=== PATIENT | female | born 1985 | race Caucasian/White ===

== ENCOUNTER 2019-04-30 17:04 | Emergency (ER) | payer MEDICAID, SELFPAY ==
[2019-04-30 18:01] LABS: Absolute Lymphocytes (CBC) 3.2 K/uL (0.7-4.9); Basophils % 0.8 % (0-1.3); Hematocrit 37.3 % (36.0-45.0); Lymphocytes % 29.5 % (15.3-44.8); RBC Red Blood Cell Count 4.03 M/uL (3.86-4.86)
[2019-04-30 18:33] LABS: BUN Blood Urea Nitrogen 9 mg/dL (7-18); Bicarbonate 26 mmol/L (21-32); Glucose Level 107 mg/dL (74-106); HCG, Quantitative 44403 mIU/mL (1-3); Potassium 3.4 mmol/L (3.5-5.1); Sodium Level 139 mmol/L (136-145)
--- NOTE | 2019-04-30 19:12 | RAD REPORT ---
EXAM DESCRIPTION: US - Transvaginal OB - 04/30/2019 6:55 pm CLINICAL HISTORY: with pelvic pain and vaginal bleeding COMPARISON: None. FINDINGS: The uterus measures 11 x 7 x 7 centimeters. Gestational sac measures 2.49 centimeters. A yolk sac is not seen. A pole is not demonstrated. No subchorionic bleed The right ovary is normal in size and echotexture. The left ovary was not seen An adnexal mass is not noted. No significant free fluid is seen. IMPRESSION: These findings likely represent a blighted ovum. However, it is recommended that the pat ient have a followup endovaginal sonogram in 1 week for re-evaluation
--- NOTE | 2019-04-30 19:24 | EDPHYS ---
Physician Documentation [facility] Name: Herminia Vega Age: 33 yrs Sex: Female : 1985 Arrival Date: 04/30/2019 Time: 17:07 Bed 5 Private MD: ED Physician Nikolas Morales HPI: 04/30 17:43 This 33 yrs old Female presents to ER via Ambulatory with complaints of jr8 Abdominal Cramping, Unknown Weeks . 17:43 The patient presents to the emergency department with abdominal pain, of the suprapubic jr8 area, that started 2 day(s) ago, described as crampy. course: care: none, Leakage of Fluid: none appreciated, Ultrasound: the patient has not had an ultrasound. Previous pregnancies: in previous pregnancies patient has had vaginal delivery, no complications. Associated signs and symptoms: The patient has no apparent associated signs or symptoms. The patient has not experienced similar symptoms in the past. The patient has not recently seen a physician. 17:44 Cramping that started 2 days ago. Took test a week ago and was positive. jr8 Denies bleeding/spotting. Has not had this in past with her other pregnancies . 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 - Coronavirus screen:: The patient has NOT traveled to [place] in the past 14 days. Proceed with normal triage process as indicated. - Social history:: Smoking status: Patient denies any tobacco usage or history of. - Ebola Screening: : Patient negative for fever greater than or equal to 101.5 degrees Fahrenheit, and additional compatible Ebola Virus Disease symptoms Patient denies exposure to infectious person Patient denies travel to an Ebola-affected area in the 21 days before illness onset No symptoms or risks identified at this time. ROS: 17:44 Eyes: Negative for injury, pain, redness, and discharge, ENT: Negative for injury, jr8 pain, and discharge, Neck: Negative for injury, pain, and swelling, Cardiovascular: Negative for chest pain, palpitations, and edema, Respiratory: Negative for shortness of breath, cough, wheezing, and pleuritic chest pain, Back: Negative for injury and pain, : Negative for injury, bleeding, discharge, and swelling, MS/Extremity: Negative for injury and deformity, Skin: Negative for injury, rash, and discoloration, Neuro: Negative for headache, weakness, numbness, tingling, and seizure. 17:44 Abdomen/GI: Positive for abdominal cramps, Negative for nausea, vomiting, and diarrhea, abdominal distension. Exam: 17:44 Eyes: Pupils equal round and reactive to light, extra-ocular motions intact. Lids and jr8 lashes normal. Conjunctiva and sclera are non-icteric and not injected. Cornea within normal limits. Periorbital areas with no swelling, redness, or edema. ENT: Nares patent. No nasal discharge, no septal abnormalities noted. Tympanic membranes are normal and external auditory canals are clear. Oropharynx with no redness, swelling, or masses, exudates, or evidence of obstruction, uvula midline. Mucous membranes moist. Neck: Trachea midline, no thyromegaly or masses palpated, and no cervical lymphadenopathy. Supple, full range of motion without nuchal rigidity, or vertebral point tenderness. No Meningismus. Cardiovascular: Regular rate and rhythm with a normal S1 and S2. No gallops, murmurs, or rubs. Normal PMI, no JVD. No pulse deficits. Respiratory: Lungs have equal breath sounds bilaterally, clear to auscultation and percussion. No rales, rhonchi or wheezes noted. No increased work of breathing, no retractions or nasal flaring. Back: No spinal tenderness. No costovertebral tenderness. Full range of motion. Skin: Warm, dry with normal turgor. Normal color with no rashes, no lesions, and no evidence of cellulitis. MS/ Extremity: Pulses equal, no cyanosis. Neurovascular intact. Full, normal range of motion. Neuro: Awake and alert, GCS 15, oriented to person, place, time, and situation. Cranial nerves II-XII grossly intact. Motor strength 5/5 in all extremities. Sensory grossly intact. Cerebellar exam normal. Normal gait. 17:44 Abdomen/GI: Inspection: obese Bowel sounds: active, all quadrants, Palpation: soft, in all quadrants, mild abdominal tenderness, in the suprapubic area, mass, is not appreciated, rebound tenderness, is not appreciated, voluntary guarding, is not appreciated, involuntary guarding, is not appreciated, no appreciated organomegaly, Indicators: McBurney's point is not tender, Acevedo's sign is negative, Rovsing's sign is negative, Liver: tenderness, is not appreciated. Vital Signs: 17:25 BP 131 / 79; Pulse 90; Resp 16; Temp 98.0; Pulse Ox 99% on R/A; Weight 81.19 kg; Height iw 5 ft. 5 in. (165.10 cm); Pain 7/10; 18:44 BP 130 / 91; Pulse 89; Resp 17; Pulse Ox 99% on R/A; rb1 19:39 BP 113 / 65; Pulse 82; Resp 16; Temp 97.9; Pulse Ox 97% on R/A; Pain 4/10; aa1 17:25 Body Mass Index 29.79 (81.19 kg, 165.10 cm) iw MDM: 17:29 Patient medically screened. jr8 19:21 Data reviewed: vital signs, nurses notes, lab test result(s), radiologic studies, jr8 ultrasound. Data interpreted: Pulse oximetry: on room air is 99 %. Interpretation: normal. Counseling: I had a detailed discussion with the patient and/or guardian regarding: the historical points, exam findings, and any diagnostic results supporting the discharge/admit diagnosis, lab results, radiology results, the need for outpatient follow up, an OB/Gyne specialist, to return to the emergency department if symptoms worsen or persist or if there are any questions or concerns that arise at home. ED course: Discussed with patient that this could be early IUP vs. Blighted ovum. Needs f/u and another US in 1 week. If she were to start bleeding in between now and then to come back for further evaluation . 04/30 17: Order name: Quantitative Hcg; Complete Time: 19:00 8 04/30 17:29 Order name: Basic Metabolic Panel; Complete Time: :8 04/30 17: Order name: CBC with Diff; Complete Time: :00 jr8 04/30 18:04 Order name: Urine Dipstick--Ancillary (enter results) bd 04/30 18:04 Order name: Urine --Ancillary (enter results) bd 04/30 18:08 Order name: US Transvaginal Ob 8 04/30 17:29 Order name: Urine Test (obtain specimen); Complete Time: 18:03 jr8 04/30 17:29 Order name: IV Saline Lock; Complete Time: 17:53 8 04/30 17:29 Order name: Labs collected and sent; Complete Time: 17:54 8 04/30 17:29 Order name: NPO; Complete Time: 18:02 jr8 04/30 17:29 Order name: Urine Dipstick-Ancillary (obtain specimen); Complete Time: 18:03 Administered Medications: No medications were administered Disposition: 04/30/19 19:22 Discharged to Home. Impression: Threatened . - Condition is Stable. - Discharge Instructions: Threatened Miscarriage, Blighted Ovum. - Medication Reconciliation Form, Thank You Letter, Antibiotic Education, Prescription Opioid Use, SBAR form form. - Follow up: Private Physician; When: 1 week; Reason: Recheck today's complaints, Continuance of care, Re-evaluation by your physician. - Problem is new. - Symptoms are unchanged. Addendum: 05/03/2019 07:13 Co-signature as Attending Physician, Nikolas Morales MD. r n Signatures: Dispatcher [employer] EDMS Ludy Ruiz RN RN aa1 Rena Sierra RN RN iw Nieto, Roman, MD MD rn Roszak, Josh, PA PA jr8 Corrections: (The following items were deleted from the chart) 04/30 17:45 17:44 Eyes: Negative for injury, pain, redness, and discharge, ENT: Negative for jr8 injury, pain, and discharge, Neck: Negative for injury, pain, and swelling, Cardiovascular: Negative for chest pain, palpitations, and edema, Respiratory: Negative for shortness of breath, cough, wheezing, and pleuritic chest pain, Back: Negative for injury and pain, MS/Extremity: Negative for injury and deformity, Skin: Negative for injury, rash, and discoloration, Neuro: Negative for headache, weakness, numbness, tingling, and seizure, jr8 19:43 19:22 04/30/2019 19:22 Discharged to Home. Impression: Threatened . Condition aa1 is Stable. Forms are SBAR form, Medication Reconciliation Form, Thank You Letter, Antibiotic Education, Prescription Opioid Use. Follow up: Private Physician; When: 1 week; Reason: Recheck today's complaints, Continuance of care, Re-evaluation by your physician. Problem is new. Symptoms are unchanged. jr8
--- NOTE | 2019-04-30 19:24 | ER ---
Nurse's Notes [facility] Name: Herminia Vega Age: 33 yrs Sex: Female : 1985 Arrival Date: 04/30/2019 Time: 17:07 Bed 5 Private MD: Diagnosis: Threatened Presentation: 04/30 17:23 Presenting complaint: Patient states: had a positive UPT last week, LMP Feb [id number]. iw started cramping X 2 days, denies vaginal bleeding, does not have OB set up yet, . Transition of care: patient was not received from another setting of care. Onset of symptoms was April 28, 2019. Risk Assessment: Do you want to hurt yourself or someone else? Patient reports no desire to harm self or others. Initial Sepsis Screen: Does the patient meet any 2 criteria? No. Patient's initial sepsis screen is negative. Does the patient have a suspected source of infection? No. Patient's initial sepsis screen is negative. Care prior to arrival: None. 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 - Coronavirus screen:: The patient has NOT traveled to [place] in the past 14 days. Proceed with normal triage process as indicated. - Social history:: Smoking status: Patient denies any tobacco usage or history of. - Ebola Screening: : Patient negative for fever greater than or equal to 101.5 degrees Fahrenheit, and additional compatible Ebola Virus Disease symptoms Patient denies exposure to infectious person Patient denies travel to an Ebola-affected area in the 21 days before illness onset No symptoms or risks identified at this time. Screenin:30 Abuse screen: Denies threats or abuse. Nutritional screening: No deficits noted. rb1 Tuberculosis screening: No symptoms or risk factors identified. Fall Risk None identified. Assessment: 17:30 General: Appears in no apparent distress. comfortable, Behavior is calm, cooperative, rb1 Denies fever. General: Denies being on any control at this time. Pain: Complains of pain in suprapubic area Pain currently is 8 out of 10 on a pain scale. Neuro: Level of Consciousness is awake, alert, obeys commands, Oriented to person, place, time, situation. Neuro: Denies Back pain. Cardiovascular: Capillary refill < 3 seconds is brisk in bilateral fingers. Respiratory: Airway is patent Respiratory effort is even, unlabored, Respiratory pattern is regular, symmetrical. GI: No signs and/or symptoms were reported involving the gastrointestinal system. Abd is soft X 4 quads. : No signs and/or symptoms were reported regarding the genitourinary system. : Denies burning with urination, pain with urination urinary frequency, urgency, vaginal bleeding, vaginal itching. Derm: Skin is pink, warm \T\ dry. 17:35 Reassessment: Asked the pt. to remain NPO until after we receive all test results, rb1 verbalized understanding. 18:30 Reassessment: Patient appears in no apparent distress at this time. Patient and/or rb1 family updated on plan of care and expected duration. Pain level reassessed. Patient is alert, oriented x 3, equal unlabored respirations, skin warm/dry/pink. 19:39 Reassessment: Patient appears in no apparent distress at this time. Patient is alert, aa1 oriented x 3, equal unlabored respirations, skin warm/dry/pink. Discussed d/c \T\ f/u instructions with pt \T\ spouse; denies questions or concerns at this time. Ambulatory to lobby with steady gait. Patient states feeling better. Vital Signs: 17:25 BP 131 / 79; Pulse 90; Resp 16; Temp 98.0; Pulse Ox 99% on R/A; Weight 81.19 kg; Height iw 5 ft. 5 in. (165.10 cm); Pain 7/10; 18:44 BP 130 / 91; Pulse 89; Resp 17; Pulse Ox 99% on R/A; rb1 19:39 BP 113 / 65; Pulse 82; Resp 16; Temp 97.9; Pulse Ox 97% on R/A; Pain 4/10; aa1 17:25 Body Mass Index 29.79 (81.19 kg, 165.10 cm) ED Course: 17:07 Patient arrived in ED. rg4 17:25 Triage completed. iw 17:26 Arm band placed on. iw 17:29 José Cassidy PA is PHCP. jr8 17:29 Nikoals Morales MD is Attending Physician. jr8 17:30 Patient has correct armband on for positive identification. Bed in low position. Call rb1 light in reach. Side rails up X 1. Pulse ox on. NIBP on. Warm blanket given. 17:31 Samira Alexandre, RN is Primary Nurse. ph 17:50 Inserted saline lock: 22 gauge in right antecubital area, using aseptic technique. rb1 Blood collected. 18:44 Primary Nurse role handed off by Samira Alexandre, MARY rb1 18:44 Shameka Anderson, RN is Primary Nurse. rb1 18:57 US Transvaginal Ob In Process Unspecified. EDMS 19:39 No provider procedures requiring assistance completed. IV discontinued, intact, aa1 bleeding controlled, No redness/swelling at site. Pressure dressing applied. Administered Medications: No medications were administered Outcome: 19:22 Discharge ordered by . jr8 19:39 Discharged to home ambulatory, with significant other. aa1 19:39 Condition: good 19:39 Discharge instructions given to patient, significant other, Instructed on discharge instructions, follow up and referral plans. Demonstrated understanding of instructions, follow-up care. 19:43 Patient left the ED. aa1 Signatures: Dispatcher [employer] EDMS Ludy Ruiz RN RN aa1 Rena Sierra RN RN José Cassidy PA PA jr8 Samira Alexandre, RN RN Shameka Anderson, RN RN rb1 Naya Hassan rg4
[2019-04-30 19:59] LABS: Urine Blood TRACE (NEG); Urine Glucose NEGATIVE (NEG); Urine Protein NEGATIVE (NEG); Urine Specific Gravity 1.025 (1.005-1.030)
[2019-04-30 20:48] VITALS: BP 113/65; TEMP 97.9; O2SAT 97
== END 2019-04-30 19:43 | disposition home or self-care (01) ==
LOC: ER 17:04
DX: O20.0 Threatened abortion (principal); Z3A.09 9 weeks gestation of pregnancy
CPT/HCPCS: 36415; 76817; 80048; 81003; 81025; 84702; 85025; 99284

== ENCOUNTER 2019-05-24 03:37 | Emergency (ER) | payer OTHER, SELFPAY ==
[2019-05-24 03:57] LABS: Absolute Lymphocytes (CBC) 3.9 K/uL (0.7-4.9); Basophils % 0.5 % (0-1.3); Hematocrit 36.4 % (36.0-45.0); Lymphocytes % 31.2 % (15.3-44.8); MPV 7.9 fL (7.6-11.3); RBC Red Blood Cell Count 3.88 M/uL (3.86-4.86)
[2019-05-24] MEDS ORDERED: ONDANSETRON 4 MG/2 ML VIAL ONE (04:03)
[2019-05-24] MEDS ORDERED: MORPHINE 4 MG/ML SYR ONE (04:03)
[2019-05-24 04:10] LABS: Potassium 3.7 mmol/L (3.5-5.1)
[2019-05-24] MEDS ORDERED: FENTANYL CITR 100 MCG/2 ML ONE (04:43)
--- NOTE | 2019-05-24 05:56 | ER ---
Nurse's Notes [facility] Name: Herminia Vega Age: 33 yrs Sex: Female : 1985 Arrival Date: 05/24/2019 Time: 03:39 Bed 20 Private MD: Diagnosis: Blighted ovum and nonhydatidiform mole Presentation: 05/23 03:45 Chief complaint: EMS states: Called for patient with vaginal bleeding the last 2 weeks, lp1 more significant tonight; complaint of pelvic pain radiating to back. Coronavirus screen: The patient has NOT traveled to a country currently being monitored by the CDC within the last 14 days. The patient has NOT had contact with any known and/or suspected case of coronavirus. Ebola Screen: No symptoms or risks identified at this time. Initial Sepsis Screen: Does the patient meet any 2 criteria? No. Patient's initial sepsis screen is negative. Does the patient have a suspected source of infection? No. Patient's initial sepsis screen is negative. Risk Assessment: Do you want to hurt yourself or someone else? Patient reports no desire to harm self or others. 03:45 Method Of Arrival: EMS: [facility] lp1 03:45 Acuity: FAIZAN 3 lp1 04:06 Onset of symptoms was May 2019. 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 - Social history:: Smoking status: Patient reports the use of cigarette tobacco products, smokes one-half pack cigarettes per day. Screenin:49 Abuse screen: Denies threats or abuse. Denies injuries from another. Nutritional lp1 screening: No deficits noted. Tuberculosis screening: No symptoms or risk factors identified. Fall Risk None identified. Assessment: 04:04 General: Appears uncomfortable, Behavior is cooperative, crying. Pain: Complains of mg2 pain in abdomen Pain does not radiate. Pain at worst was 10 out of 10 on a pain scale. Quality of pain is described as crampy, Pain began gradually, Is intermittent. Neuro: Level of Consciousness is awake, alert, obeys commands, Oriented to person, place, time, situation. Cardiovascular: Capillary refill < 3 seconds Patient's skin is warm and dry. Respiratory: Airway is patent Respiratory effort is even, unlabored, Respiratory pattern is regular, symmetrical. GI: Reports nausea. : chad blood, Reports cramping, vaginal bleeding that is with clots, heavy flow. EENT: No signs and/or symptoms were reported regarding the EENT system. Derm: Skin is intact, is healthy with good turgor, Skin is pink, warm \T\ dry. normal. Musculoskeletal: Circulation, motion, and sensation intact. Capillary refill < 3 seconds. 05:29 Reassessment: Patient appears in no apparent distress at this time. Patient and/or mg2 family updated on plan of care and expected duration. Pain level reassessed. Patient is alert, oriented x 3, equal unlabored respirations, skin warm/dry/pink. ultrasound at bedside. Patient states feeling better. Vital Signs: 03:45 BP 119 / 71; Pulse 100; Resp 18; Temp 98(TE); Pulse Ox 100% on R/A; Weight 81.65 kg lp1 (R); Height 5 ft. 5 in. (165.10 cm); Pain 10/10; 04:42 BP 111 / 41; Pulse 103; Resp 18; Pulse Ox 95% on R/A; mg2 05:27 BP 107 / 59; Pulse 92; Resp 18; Pulse Ox 99% on R/A; mg2 03:45 Body Mass Index 29.95 (81.65 kg, 165.10 cm) lp1 ED Course: 03:39 Patient arrived in ED. mg2 03:48 Triage completed. lp1 03:48 Arm band placed on. lp1 03:55 Antwan Medley MD is Attending Physician. tw4 03:55 Inserted saline lock: 20 gauge in right antecubital area, using aseptic technique. mg2 Blood collected. 04:06 Patient has correct armband on for positive identification. Pulse ox on. NIBP on. Door mg2 closed. Warm blanket given. 04:40 Tr Loera, MARY is Primary Nurse. mg2 05:29 Assist provider with pelvic exam: Set up pelvic tray. Performed by Antwan Medley MD mg2 Patient tolerated well. 06:05 US OB Complete In Process Unspecified. EDMS 06:16 IV discontinued, intact, bleeding controlled, No redness/swelling at site. Pressure mg2 dressing applied. Administered Medications: 04:03 Drug: morphine 4 mg Route: IVP; Site: right antecubital; mg2 04:40 Follow up: Response: No adverse reaction; Pain is unchanged, physician notified mg2 04:03 Drug: Zofran (Ondansetron) 4 mg Route: IVP; Site: right antecubital; mg2 04:40 Follow up: Response: No adverse reaction mg2 04:03 Drug: NS 0.9% 1000 ml Route: IV; Rate: 1000 ml; Site: right antecubital; mg2 06:16 Follow up: Response: No adverse reaction; IV Status: Completed infusion; IV Intake: mg2 1000ml 04:41 Drug: fentaNYL (PF) 25 mcg Route: IVP; Site: right antecubital; mg2 06:15 Follow up: Response: No adverse reaction mg2 06:15 Drug: TORadol 30 mg Route: IVP; Site: right antecubital; mg2 06:15 Follow up: Response: No adverse reaction; Medication administered at discharge. mg2 Intake: 06:16 IV: 1000ml; Total: 1000ml. mg2 Outcome: 05:55 Discharge ordered by . tw4 06:16 Discharged to home ambulatory, with family. mg2 06:16 Condition: stable 06:16 Discharge instructions given to patient, Instructed on discharge instructions, follow up and referral plans. medication usage, Demonstrated understanding of instructions, follow-up care, medications, Prescriptions given X 1. 06:31 Patient left the ED. mg2 Signatures: Dispatcher [employer] EDMS Codi Cartwright, RN RN lp1 Antwan Medley MD MD tw4 Tr Loera RN RN mg2
--- NOTE | 2019-05-24 05:56 | EDPHYS ---
Physician Documentation [facility] Name: Herminia Vega Age: 33 yrs Sex: Female : 1985 Arrival Date: 05/24/2019 Time: 03:39 Bed 20 Private MD: ED Physician Antwan Medley HPI: 05/23 04:39 This 33 yrs old Female presents to ER via EMS with complaints of vaginal tw4 bleeding. 04:39 The patient presents with vaginal bleeding that is. Onset: The symptoms/episode tw4 began/occurred 2 week(s) ago. Modifying factors: The symptoms are alleviated by nothing, the symptoms are aggravated by nothing. Associated signs and symptoms: The patient has no apparent associated signs or symptoms. Severity of symptoms: At their worst the symptoms were moderate, in the emergency department the symptoms are unchanged. The patient has experienced a previous episode, approximately 2 weeks ago. HOME VISITOR: 03:49 LMP 02/27/2019 lp1 04:44 4, Living 3, LMP 02/23/2019 tw4 Historical: - Allergies: 03:49 No Known Allergies; lp1 - Home Meds: 03:49 None [Active]; lp1 - PMHx: 03:49 None; lp1 - PSHx: 03:49 ; lp1 - Immunization history:: Adult Immunizations up to date. - Social history:: Smoking status: Patient reports the use of cigarette tobacco products, smokes one-half pack cigarettes per day. ROS: 04:44 Positive for pelvic pain, vaginal bleeding, Negative for tw4 04:44 Constitutional: Negative for fever, chills, and weight loss, Eyes: Negative for injury, pain, redness, and discharge, Cardiovascular: Negative for chest pain, palpitations, and edema, Respiratory: Negative for shortness of breath, cough, wheezing, and pleuritic chest pain, Abdomen/GI: Negative for abdominal pain, nausea, vomiting, diarrhea, and constipation, Back: Negative for injury and pain, MS/Extremity: Negative for injury and deformity, Skin: Negative for injury, rash, and discoloration. Exam: 04:44 Constitutional: This is a well developed, well nourished patient who is awake, alert, tw4 and in no acute distress. Head/Face: Normocephalic, atraumatic. Chest/axilla: Normal chest wall appearance and motion. Nontender with no deformity. No lesions are appreciated. Cardiovascular: Regular rate and rhythm with a normal S1 and S2. No gallops, murmurs, or rubs. Normal PMI, no JVD. No pulse deficits. Respiratory: Lungs have equal breath sounds bilaterally, clear to auscultation and percussion. No rales, rhonchi or wheezes noted. No increased work of breathing, no retractions or nasal flaring. Abdomen/GI: Soft, non-tender, with normal bowel sounds. No distension or tympany. No guarding or rebound. No evidence of tenderness throughout. MS/ Extremity: Pulses equal, no cyanosis. Neurovascular intact. Full, normal range of motion. Neuro: Awake and alert, GCS 15, oriented to person, place, time, and situation. Cranial nerves II-XII grossly intact. Motor strength 5/5 in all extremities. Sensory grossly intact. Cerebellar exam normal. Normal gait. 05:48 : Pelvic Exam: Speculum exam: mild bleeding, os that is open. tw4 05:48 : Pelvic Exam: Speculum exam: blood clots in vaginal vault, no tissue in cervix is tw4 seen, no tissue in vagina is seen, a female visual merchandising specialist was present for the exam. Vital Signs: 03:45 BP 119 / 71; Pulse 100; Resp 18; Temp 98(TE); Pulse Ox 100% on R/A; Weight 81.65 kg lp1 (R); Height 5 ft. 5 in. (165.10 cm); Pain 10/10; 04:42 BP 111 / 41; Pulse 103; Resp 18; Pulse Ox 95% on R/A; mg2 05:27 BP 107 / 59; Pulse 92; Resp 18; Pulse Ox 99% on R/A; mg2 03:45 Body Mass Index 29.95 (81.65 kg, 165.10 cm) lp1 MDM: 03:57 Patient medically screened. tw4 05:58 Differential diagnosis: dysfunctional uterine bleeding, dysmenorrhea, ectopic tw4 , threatened Ab, inevitable Ab, complete Ab, retained Ab, postcoital bleeding, uterine fibroids. Data reviewed: vital signs, nurses notes. Data reviewed: lab test result(s), CBC, radiologic studies, ultrasound. Data interpreted: Pulse oximetry: Interpretation: normal. Counseling: I had a detailed discussion with the patient and/or guardian regarding: the historical points, exam findings, and any diagnostic results supporting the discharge/admit diagnosis, radiology results. Medication response: morphine markedly relieved the patient's pain. Symptoms have improved. Response to treatment: and as a result, I will discharge patient. Special discussion: I discussed with the patient/guardian in detail that at this point there is no indication for admission to the hospital. It is understood, however, that if the symptoms persist or worsen the patient needs to return immediately for re-evaluation. Based on the history and exam findings, there is no indication for further emergent testing or inpatient evaluation. I discussed with the patient/guardian the need to see the OB Gyne specialist for further evaluation of the symptoms. 05/23 03:39 Order name: Abo/rh Typing; Complete Time: 04:14 mg2 05/23 04:15 Interpretation: Within normal limits. tw4 05/23 03:39 Order name: Basic Metabolic Panel; Complete Time: 04:14 mg2 05/23 04:14 Interpretation: Normal except: CL 111; GFR 79; GLUC 114. tw4 05/23 03:39 Order name: CBC with Diff; Complete Time: 04:14 mg2 05/23 04:15 Interpretation: Normal except: WBC 12.6. tw4 05/23 03:51 Order name: US OB Complete lp1 05/23 03:39 Order name: IV Saline Lock; Complete Time: 04:02 mg2 05/23 03:39 Order name: Labs collected and sent; Complete Time: 04:02 mg2 05/23 03:39 Order name: NPO; Complete Time: 04:02 mg2 05/23 03:39 Order name: Urine Dipstick-Ancillary (obtain specimen); Complete Time: 04:02 mg2 Administered Medications: 04:03 Drug: morphine 4 mg Route: IVP; Site: right antecubital; mg2 04:40 Follow up: Response: No adverse reaction; Pain is unchanged, physician notified mg2 04:03 Drug: Zofran (Ondansetron) 4 mg Route: IVP; Site: right antecubital; mg2 04:40 Follow up: Response: No adverse reaction mg2 04:03 Drug: NS 0.9% 1000 ml Route: IV; Rate: 1000 ml; Site: right antecubital; mg2 06:16 Follow up: Response: No adverse reaction; IV Status: Completed infusion; IV Intake: mg2 1000ml 04:41 Drug: fentaNYL (PF) 25 mcg Route: IVP; Site: right antecubital; mg2 06:15 Follow up: Response: No adverse reaction mg2 06:15 Drug: TORadol 30 mg Route: IVP; Site: right antecubital; mg2 06:15 Follow up: Response: No adverse reaction; Medication administered at discharge. mg2 Disposition: 05/24/19 05:55 Discharged to Home. Impression: Blighted ovum and nonhydatidiform mole. - Condition is Stable. - Discharge Instructions: Blighted Ovum. - Prescriptions for Tylenol- Codeine #3 300-30 mg Oral Tablet - take 2 tablet by ORAL route every 6 hours As needed; 6 tablet. - Medication Reconciliation Form, Thank You Letter, Antibiotic Education, Prescription Opioid Use form. - Follow up: Private Physician; When: Upon discharge from the Emergency Department; Reason: Recheck today's complaints, Continuance of care, Re-evaluation by your physician. - Problem is new. - Symptoms have improved. Signatures: Dispatcher [employer] EDMS Codi Cartwright RN RN lp1 Antwan Medley MD MD tw4 Tr Loera RN RN mg2 Corrections: (The following items were deleted from the chart) 06:31 05:55 05/24/2019 05:55 Discharged to Home. Impression: Blighted ovum and mg2 nonhydatidiform mole. Condition is Stable. Forms are Medication Reconciliation Form, Thank You Letter, Antibiotic Education, Prescription Opioid Use. Follow up: Private Physician; When: Upon discharge from the Emergency Department; Reason: Recheck today's complaints, Continuance of care, Re-evaluation by your physician. Problem is new. Symptoms have improved. tw4
[2019-05-24] MEDS ORDERED: KETOROLAC 30 MG/ML INJ ONE (06:09)
[2019-05-24 06:50] VITALS: TEMP 98
[2019-05-24 06:57] VITALS: BP 107/59; O2SAT 99
--- NOTE | 2019-05-24 08:29 | RAD REPORT ---
EXAM DESCRIPTION: US - OB Complete - 05/24/2019 6:05 am CLINICAL HISTORY: VAGINAL BLEEDING COMPARISON: Transvaginal OB dated 04/30/2019 FINDINGS: Enlarged thin-walled cystic mass within the uterus is likely an empty gestational sac. Ech ogenic material along the posterior margin does not have the appearance of pole. This is possib ly minimal or early placental formation. Average sac diameter measurement would correspond to a 12 we ek size gestational age. However, there is no yolk sac or pole. Sac has enlarged since the uary study were it measured as a 7-8 week sized sac. No intrauterine hematoma. No typical molar pr egnancy findings. Finding most likely represents late stage blighted ovum. Serial beta HCG values are not available time of this dictation. Follow-up sonography is recommended as well as correlation wit h beta HCG values. No ovarian or adnexal abnormality seen. Adnexal assessment was very limited on this examination. IMPRESSION: A 12 week sized fluid collection within uterus is most likely a late stage blighted ovum . There is questionable minimal placental tissue along the posterior margin. The adnexal assessment is very limited on this examination. No abnormalities noted in the adnexa on April 30 imaging. Correlation is needed with serial beta HCG values and follow-up sonography can be performed if this p resumed blighted ovum does not soon pass.
== END 2019-05-24 06:31 | disposition home or self-care (01) ==
LOC: ER 03:37
DX: O02.0 Blighted ovum and nonhydatidiform mole (principal); F17.210 Nicotine dependence, cigarettes, uncomplicated
CPT/HCPCS: 96361; 85025; 80048; 36415; 86900; 86901; 76805; 96375; 96374; 99284; J3010; J2405